=== PATIENT | female | born 1990 | race African-American/Black ===

== ENCOUNTER 2023-04-12 19:11 | Emergency (ER) | payer MEDICAID, OTHER ==
[2023-04-12 19:13] VITALS: BP 123/80; PULSE 64; RESP 16; TEMP 97.8
[2023-04-12] MEDS ORDERED: ACETAMINOPHEN 325MG TABLET PO ONE (21:30)
[2023-04-12] MEDS ORDERED: NAPR-1129 MT (22:28)
== END 2023-04-12 23:00 | disposition home or self-care (01) ==
LOC: ER 19:11
DX: R51.9 Headache, unspecified (principal); R42 Dizziness and giddiness
CPT/HCPCS: 81025; 99284

== ENCOUNTER 2024-04-16 14:12 | Emergency (ER) | payer OTHER, MEDICAID ==
[~2024-04-16] VITALS: Ht 165.1 cm; Wt 75.0 kg
[~2024-04-16 14:12] MED LIST: NAPR-1129 MT
[2024-04-16 14:14] VITALS: O2SAT 99
[2024-04-16] MEDS: PANTOPRAZOLE SODIUM 40 MG/VIAL IV STA (14:43)
[2024-04-16] MEDS: ONDANSETRON HCL 4MG/2ML INJ IV STA (14:43)
[2024-04-16] MEDS: SODIUM CHLORIDE 0.9% 1,000 ML IV ONE (14:44)
[2024-04-16 14:54] LABS: BASOPHILS % 0.3 % (0.0-2.0); EOSINOPHILS % 0.4 % (0.0-5.0); HEMATOCRIT. 43.6 % (36.0-48.0); HEMOGLOBIN. 13.8 g/dL (12.0-16.0); LYMPHOCYTES % 13.9 % (20.0-50.0); MEAN CORPUSCULAR HEMOGLOBIN 30.8 pg (28.0-32.0); MEAN CORPUSCULAR HGB CONC 31.7 g/dL (31.0-37.0); MEAN CORPUSCULAR VOLUME 97.1 fL (81.0-99.0); MEAN PLATELET VOLUME 8.5 fl (7.4-10.4); MONOCYTES % 4.5 % (2.0-8.0); NEUTROPHILS % 80.9 % (40.0-76.0); PLATELET 257 x1000/uL (130-400); RED BLOOD CELL COUNT 4.49 mill/uL (4.2-5.4); RED CELL DISTRIBUTION WIDTH 14.4 % (11.6-14.6); WHITE BLOOD COUNT 7.6 x1000/uL (4.5-11.0)
[2024-04-16 14:58] VITALS: TEMP 97.3
[2024-04-16 14:59] LABS: CHLORIDE 108 mEq/L (98-107); POTASSIUM 4.5 mEq/L (3.5-5.1); SODIUM 138 mEq/L (136-145)
[2024-04-16 15:00] LABS: CARBON DIOXIDE 24 mEq/L (21-32)
[2024-04-16 15:05] LABS: GLUCOSE 136 mg/dL (70-105)
[2024-04-16 15:06] LABS: UREA NITROGEN BLOOD 10 mg/dL (9-23)
[2024-04-16 15:07] LABS: ALANINE AMINOTRANSFERASE 22 IU/L (10-49); ALBUMIN 5.4 g/dL (3.2-4.8); ASPARTATE AMINOTRANSFERASE 36 IU/L (<34); BILIRUBIN DIRECT 0.2 mg/dL (<=3.0); ETHANOL BLOOD < 10 mg/dL (<10); HCG SCREEN NEGATIVE
[2024-04-16 15:08] LABS: BILIRUBIN TOTAL 0.5 mg/dL (0.1-1.0); PROTEIN TOTAL 8.4 g/dL (6.0-8.3)
[2024-04-16] MEDS: ONDANSETRON HCL 4MG/2ML INJ IV ONE (16:52)
[2024-04-16] MEDS: KETOROLAC 15MG/ML VIAL IV ONE (16:53)
[2024-04-16] MEDS: IOHEXOL-300 100 ML BOTTLE ONE (16:59)
[2024-04-16 17:13] LABS: CLARITY URINE CLEAR (CLEAR); COLOR URINE YELLOW (YELLOW); GLUCOSE URINE NEGATIVE (NEGATIVE); KETONES URINE 1+ (NEGATIVE); LEUKOCYTE ESTERASE URINE NEGATIVE (NEGATIVE); NITRITE URINE NEGATIVE (NEGATIVE); OCCULT BLOOD URINE 1+ (NEGATIVE); PH URINE 8.5 (4.5-8.0); PROTEIN URINE NEGATIVE (NEGATIVE); SPECIFIC GRAVITY URINE 1.035 (1.005-1.030); UROBILINOGEN URINE 0.2 E.U./dL (0.2-1.0)
[2024-04-16 17:22] LABS: *AMPHETAMINES SCREEN URINE NEGATIVE (NEGATIVE); *BARBITURATES SCREEN URINE NEGATIVE (NEGATIVE); *BENZODIAZEPINES SCREEN URINE NEGATIVE (NEGATIVE); *COCAINE SCREEN URINE NEGATIVE (NEGATIVE); CANNABINOID URINE SCREEN PRESUMPTIVE POSITIVE (NEGATIVE); ECSTASY MDMA SCREEN URINE NEGATIVE (NEGATIVE); METHADONE URINE SCREEN NEGATIVE (NEGATIVE); OPIATES URINE SCREEN NEGATIVE (NEGATIVE); PHENCYCLIDINE URINE SCREEN NEGATIVE (NEGATIVE)
[2024-04-16 17:28] LABS: BACTERIA URINE NONE SEEN; SQUAMOUS EPITHELIAL CELL URINE FEW /lpf (RARE/1+); WBC URINE 0-2 /hpf (0-2)
[2024-04-16] MEDS: MORPHINE SULFATE 4 MG/ML INJ (FOR IV/IM USE) IV ONE (19:40)
[2024-04-16 20:30] VITALS: BP 108/58; PULSE 58; RESP 13
== END 2024-04-16 20:40 | disposition left against medical advice (07) ==
LOC: ER 14:12 → CANBEDREQ 18:47 → ER 20:40
DX: R11.10 Vomiting, unspecified (principal); R10.9 Unspecified abdominal pain; F12.90 Cannabis use, unspecified, uncomplicated; R53.1 Weakness
CPT/HCPCS: 80076; 80305; 80048; 81003; 80320; 84703; 83690; 85025; 36415; 74177; 96365; 96375; 96376; 99291; Q9967; J1885; J2405; J2470; J7030; Z7610 ×5; G0480